=== PATIENT | female | born 1985 | race Caucasian/White ===

== ENCOUNTER → 2021-05-08 09:18 | Outpatient (CLI) | payer OTHER, SELFPAY ==
[2021-05-08 14:43] LABS: COVID19 -Nasal RAPID Negative (Negative)
== END ==
PROVIDERS: PCP Student in an Organized Health Care Education/Training Program; Visit Provider Specialist
DX: Z01.812 Encounter for preprocedural laboratory examination (principal); Z20.822 Contact with and (suspected) exposure to COVID-19
CPT/HCPCS: 87635; C9803

== ENCOUNTER 2021-05-09 06:19 | Day surgery (SDC) | payer OTHER, SELFPAY ==
[2021-05-09 07:14] VITALS: BP 104/71; PULSE 73; RESP 16; TEMP 36.6; O2SAT 99; BMI 24.3
[2021-05-09] MEDS: LACTATED RINGERS 1,000 ML 42 ML IV (07:31)
--- NOTE | 2021-05-09 07:47 | PM.PREOP ---
Pre-operative Note COVID-19 COVID-19 status: Negative Result date/Date tested (Pos, Neg/Pending): 05/08/21 Interval Note History & Physical reviewed/Exam performed by Physician: Yes Changes to H&P: No ASA Class (for procedural sedation): II
[2021-05-09] MEDS: fentaNYL 250 MCG/5 ML INJ IV (08:13)
[2021-05-09] MEDS: MIDAZOLAM 5 MG/5 ML VIAL IV (08:13)
--- NOTE | 2021-05-09 08:27 | P.OP.ENDO_ITS ---
Operative Date/Time/Diagnoses Date of procedure: 05/09/21 Time of procedure: 08:27 Pre-op diagnosis: Rectal bleeding Post-op diagnosis: same Procedure & Clinicians Study performed: Colonoscopy Same procedure as scheduled: Yes Indications: Try to determine cause of rectal bleeding Surgeon: Larry John Procedure Notes SCOAP/Timeout: Performed Procedure in detail: The patient was placed in the left lateral decubitus posi tion and underwent IV sedation directed by the surgeon consisting of fentanyl and Versed. Digital exam was remarkable for decreased sphincter tone.. The scope was inserted and advanced through the rectum into the sigmoid, descending, transverse, and ascending colon. There was some tortuosity but otherwise a fairly normal transit. Patient had to be repositioned and stiffener inserted in order to reach the cecum.. The cecum was reached identified by the ileocecal valve and the appendiceal opening. The ileocecal valve was successfully cannulated. The terminal ileum was normal in appearance. The scope was gradually brought out. No Polyps were found. There was 1 small AVM noted in the transverse colon. It had no evidence of ulceration or bleeding. The scope ultimately was retroflexed in the rectum. The appearance was normal.. The scope was removed very slowly through the anus. I could see no evidence of an ulcer or a fissure. the patient tolerated the procedure well. The prep was excellent Scope withdrawal time: Just over 6 minutes Sedation minutes: 23 Specimen(s): none sent Complications: none Post-procedure Recommendations: Other recommendation (Colonoscopy at age 48-50 for screening) Follow up: as needed Disposition: PACU
[2021-05-09 08:31] VITALS: BP 103/67; PULSE 59; RESP 10; TEMP 36.9; O2SAT 95
--- NOTE | 2021-05-09 08:32 | SUR.PHASEI ---
Received to PACU after colonoscopy with sedation. Report from SETH Rocha.
[2021-05-09 08:34] VITALS: BP 100/65; PULSE 59; RESP 10; O2SAT 95
[2021-05-09 08:39] VITALS: BP 97/62; PULSE 71; RESP 10; O2SAT 94
[2021-05-09 08:44] VITALS: BP 103/58; PULSE 59; RESP 16; TEMP 37.1; O2SAT 97
[2021-05-09 08:50] VITALS: BP 112/69; PULSE 55; RESP 12; TEMP 36.9; O2SAT 96
--- NOTE | 2021-05-09 08:58 | SUR.PHASEII ---
Phase II completed in PACU.
== END 2021-05-09 09:01 | disposition home or self-care (01) ==
PROVIDERS: PCP Student in an Organized Health Care Education/Training Program; Referring Provider Specialist; Visit Provider Specialist
PROC: 0DJD8ZZ Inspection of Lower Intestinal Tract, Via Natural or Artificial Opening Endoscopic (ICD-10-PCS; CPT 45378; principal; 2021-05-09 07:45)
DX: K62.5 Hemorrhage of anus and rectum (principal); Q27.33 Arteriovenous malformation of digestive system vessel
CPT/HCPCS: 45378; 81025; 99152; J2250; J3010

== ENCOUNTER 2022-07-06 15:30 | Emergency (ER) | payer OTHER, SELFPAY ==
[2022-07-06 15:45] VITALS: BP 117/80; PULSE 84; RESP 16; TEMP 36.9; O2SAT 99; BMI 24.2
--- NOTE | 2022-07-06 17:13 | ED.URI ---
HPI - URI/Sore Throat <Dianna Loza PA-C - Last Filed: 07/06/22 19:35> General Chief Complaint: Upper Respiratory Symptoms Stated Complaint: COVID symptoms Time Seen by Provider: 07/06/22 15:58 Source: patient Mode of arrival: Ambulatory History of Present Illness HPI Narrative: The patient is very pleasant 37-year-old female with medical history significant for hypertension, seasonal allergy, presents today to ER with COVID related symptoms. She was tested positive for COVID-19 with a home test. She has experienced headache, sore throat, chest congestion, generalized body ache. Patient felt as though she had fever, however currently her fever is down Related Data Home Medications Medication Instructions Recorded Confirmed albuterol 90 mcg/actuation aerosol mcg inhalation 04/18/21 05/08/21 inhaler fluticasone propionate 50 1 spray intranasal DAILY 04/18/21 05/08/21 mcg/actuation nasal spray,suspension (Flonase Allergy Relief) propranolol 120 mg capsule,24 120 mg PO DAILY 04/18/21 05/09/21 hr,extended release norethindrone (contraceptive) 0.35 mg 05/09/21 mg tablet (Evon-BE) Previous Rx's Medication Instructions Recorded nirmatrelvir 300 mg (150 mg See Rx Instructions PO .COMPLEX 07/06/22 x2)-ritonavir 100 mg tablet,dose #30 ea pack(EUA) (Paxlovid) Allergies Allergy/AdvReac Type Severity Reaction Status Date / Time latex AdvReac Rash Verified 07/06/22 17:24 Review of Systems <Dianna Loza PA-C - Last Filed: 07/06/22 19:35> Review of Systems Narrative: Pertinent review of systems is otherwise normal unless stated in HPI Patient History <Dianna Loza PA-C - Last Filed: 07/06/22 19:35> Social History household members: spouse Smoking Status: Current every day smoker alcohol intake: current Smoking Status: Current every day smoker alcohol intake frequency: a few times a week Substance Use Type: does not use Exam <Dianna Loza PA-C - Last Filed: 07/06/22 19:35> Narrative Exam Narrative: GENERAL: 37 year old patient appears stated age. Well-developed patient, in no apparent distress. HEAD: Atraumatic. Normocephalic. EYES: Pupils equal round and reactive. Extraocular motions intact. No scleral icterus. No injection or drainage. ENT: Nose without bleeding, purulent drainage. Throat with erythema, no tonsillar hypertrophy or exudate. Airway patent. NECK: Trachea midline. Non tender CARDIOVASCULAR: Regular rate and rhythm without murmurs, gallops, or rubs. RESPIRATORY: Clear to auscultation a/p/l flield . Breath sounds equal bilaterally. No wheezes, rales, or rhonchi. GASTROINTESTINAL: Abdomen soft, non-tender, nondistended. EXTREMITIES: No edema or joint tenderness. BACK: Nontender without deformity or crepitance. No flank tenderness. NEURO: AOx3. SKIN: No rash or erythema of visible areas Initial Vital Signs Initial Vital Signs: Vital Signs Temperature 98.4 F 07/06/22 15:45 Pulse Rate 84 07/06/22 15:45 Respiratory Rate 16 07/06/22 15:45 Blood Pressure 117/80 07/06/22 15:45 Pulse Oximetry 99 07/06/22 15:45 Oxygen Delivery Method 07/06/22 15:45 <DO Amber Coelho Last Filed: 07/07/22 07:19> Initial Vital Signs Initial Vital Signs: Vital Signs Temperature 98.4 F 07/06/22 15:45 Pulse Rate 84 07/06/22 15:45 Respiratory Rate 16 07/06/22 15:45 Blood Pressure 117/80 07/06/22 15:45 Pulse Oximetry 99 07/06/22 15:45 Oxygen Delivery Method 07/06/22 15:45 Course <Dianna Loza PA-C - Last Filed: 07/06/22 19:35> Vital Signs Vital signs: Vital Signs - 8 hr 07/06/22 15:45 Temperature 98.4 F Pulse Rate 84 Respiratory Rate 16 Blood Pressure 117/80 Pulse Oximetry 99 Oxygen Delivery Method Room Air <Thiago Richard DO - Last Filed: 07/07/22 07:19> Vital Signs Vital signs: Vital Signs - 8 hr 07/06/22 15:45 Temperature 98.4 F Pulse Rate 84 Respiratory Rate 16 Blood Pressure 117/80 Pulse Oximetry 99 Oxygen Delivery Method Room Air MDM - URI/Sore Throat <Dianna Loza PA-C - Last Filed: 07/06/22 19:35> Differential Diagnosis Differential diagnosis: Likely pharyngitis Lab Data Lab results narrative: patient showed positive test for COVID 19 howeve PE is entirely unremarkable MDM Narrative Medical decision making narrative: Mrs Trimble is diagnosed with COVID-19 infection. Her vital signs are stable, she displays typical signs and symptoms of a viral illness. Advised to treat her symptoms conservatively, with hydration, rest, NSAIDS, she will start on Paxlovid, use oral rinses, decongestants. If her conditions worsens, she will seek medical attention. Patient understands and agrees with diagnosis and plan. Return precautions given and questions answered to their apparent satisfaction Discharge Plan Departure Patient Disposition: Home Clinical Impression: COVID-19, Upper respiratory infection Instructions: COVID-19 Activity Restrictions/Additional Instructions: *You have been diagnosed with [COVID 19 ifection ] *What to do: *Please continue to take your regular medications as directed. [x ] New medication prescriptions sent to your pharmacy: Paxlovid *Please follow up with your primary care provider in 2-3 days, call for an appointment. Let them know you were seen in the Emergency Department and that we ask that you be seen in follow up. We will electronically transmit a record of today's note if your PCP is in our system *Return to Emergency Department if you should have any new, worsening or concerning symptoms, such as fever greater than 101 F, shaking chills, cough, chest pain, worsening pain, persistent vomiting or other bothersome symptoms Prescriptions: New Paxlovid (EUA) 300 mg (150 mg x 2)-100 mg tablets,dose pack See Rx Instructions .ROUTE .COMPLEX Qty: 30 0RF Rx Instructions: take TWO 150 mg tablets of nirmatrelvir with ONE 100 mg tablet of ritonavir twice daily for 5 days No Action propranolol 120 mg capsule,extended release 24 hr 120 mg PO DAILY fluticasone propionate [Flonase Allergy Relief] 50 mcg/actuation spray,suspension 1 spray intranasal DAILY Rx Instructions: administer into each nostril albuterol 90 mcg/actuation aerosol inhalation norethindrone (contraceptive) [Evon-BE] 0.35 mg tablet Referrals: Christine Monet MD [Primary Care Provider] - Stand Alone Forms: Work Release Note Visit Report Forms: Patient Portal/API <Thiago Richard, - Last Filed: 07/07/22 07:19> Cosign ED Attending Cosignature Attestation: Dr Richard Co-Sign Statement: I was available for consultation during this patient's emergency department visit. This chart is signed by myself for administrative purposes only. I did not have direct contact with this patient during this visit. They were seen independently by the APC.
[2022-07-06 17:42] VITALS: BP 122/77; PULSE 85; RESP 18; O2SAT 97
--- NOTE | 2022-07-06 17:43 | PC.NURSE ---
assessment done by provider.
== END 2022-07-06 17:43 | disposition home or self-care (01) ==
PROVIDERS: Emergency Provider Physician Assistant Medical; PCP Student in an Organized Health Care Education/Training Program
DX: U07.1 COVID-19 (principal); J06.9 Acute upper respiratory infection, unspecified
CPT/HCPCS: 99281